=== PATIENT | male | born 1980 | race Caucasian/White ===

== ENCOUNTER 2018-11-08 19:23 | Emergency (ER) | payer MEDICAID ==
[~2018-11-08] VITALS: Ht 175.3 cm; Wt 106.3 kg
[2018-11-08 19:33] VITALS: Ht 175.3 cm; Wt 106.3 kg
[2018-11-08] MEDS ORDERED: KETOROLAC 60 MG INJ IM STA (20:56)
[2018-11-08] MEDS ORDERED: DEXAMETHASONE 10 MG/ML 1 ML INJ IM ONE (21:00)
[2018-11-08] MEDS ORDERED: PRED20TA PO (21:04)
[2018-11-08] MEDS ORDERED: NAPR-985 PO (21:04)
[2018-11-08] MEDS ORDERED: CYCL10TA7 PO (21:04)
[2018-11-08] MEDS ORDERED: HYDR-4011 PO (21:04)
[2018-11-08] MEDS ORDERED: IBUP-1542 PO (21:04)
--- NOTE | 2018-11-08 21:20 | ERD ---
ER Documentation Chief Complaint Chief Complaint BACK PAIN S/P LIFTING HEAVY OBJECT 4 DAYS AGO HPI 37-year-old male with past medical history of sciatica, no history who presents with complaint of lower back pain over the past 4 days. States he was lifting a pretty heavy water canister and felt he pulled his back. Since that time having lower back pain that radiates down to right lower extremity, with right lower extremity stiffness and tingling sensation. Has had difficulty ambulating and recently started using a cane. Has had difficulty sleeping on his back at night. He otherwise denies lower extremity weakness, urinary or bowel incontinence, lower extremity pain or weakness. He otherwise reports good health and is without further complaint. ROS All systems reviewed and are negative except as per history of present illness. Medications Home Meds Active Scripts Ibuprofen* (Motrin*) 600 Mg Tab, 600 MG PO Q6, #30 TAB Prov:DAYA IVY PA-C 11/08/18 Hydrocodone/Acetaminophen ([place] 5-325 Tablet) 1 Each Tablet, 1 TAB PO Q6H PRN for PAIN, #7 TAB Prov:DAYA IVY-C 11/08/18 Naproxen* (Naprosyn*) 500 Mg Tablet, 500 MG PO BID PRN for PAIN AND/OR INFLAMMATION, #30 TAB Prov:DAYA IVY PA-C 11/08/18 Cyclobenzaprine Hcl* (Cyclobenzaprine Hcl*) 10 Mg Tablet, 10 MG PO TID, #15 TAB Prov:DAYA IVY PA-C 11/08/18 Prednisone* (Prednisone*) 20 Mg Tab, 60 MG PO DAILY for 4 Days, TAB Prov:DAYA IVY PA-C 11/08/18 Allergies Allergies: Coded Allergies: No Known Allergy (Unverified , 11/08/18) PMhx/Soc Medical and Surgical Hx: pt denies Medical Hx, pt denies Surgical Hx History of Surgery: No Anesthesia Reaction: No Hx Neurological Disorder: No Hx Respiratory Disorders: No Hx Cardiac Disorders: No Hx Psychiatric Problems: No Hx Miscellaneous Medical Probl: No Hx Alcohol Use: No Hx Substance Use: No Hx Tobacco Use: Yes Smoking Status: Current every day smoker FmHx Family History: No diabetes, No coronary disease, No other Physical Exam Vitals Vital Signs Date Temp Pulse Resp B/P (MAP) Pulse Ox O2 O2 Flow FiO2 Time Delivery Rate 11/08/18 98.4 60 18 135/88 100 19:33 (104) Physical Exam I have reviewed the triage vital signs. Const: Well nourished, well developed, appears stated age Eyes: PERRL, no conjunctival injection HENT: NCAT, Neck supple without meningismus CV: RRR, Warm, well-perfused extremities RESP: CTAB, Unlabored respiratory effort GI: soft, non-tender, non-distended, no masses MSK: No gross deformities appreciated, unable to raise right lower extremity, unable to take more than 4 steps without significant pain and discomfort, right lower extremity 4 out of 5 strength , SI LT throughout bilateral lower extremities, left lower extremity 5 out of 5 strength throughout Back Exam: Skin: No bruising or rash Compartments: Soft Motor: Normal flexion and extension of bilateral hip/knee/ankle/foot Sensation: Intact to light touch throughout Bones: No midline TTP Skin: Warm, dry. No rashes Neuro: grossly non focal Psych: Appropriate mood and affect. Results 24 hrs Current Medications Medications Dose Sig/Ashley Start Time Status Last (Trade) Ordered Route PRN Stop Time Admin Dose Reason Admin Ketorolac 60 mg ONCE STAT 11/08/18 DC 11/08/18 Tromethamine IM 20:56 21:21 (Toradol) 11/08/18 20:58 10 mg ONCE ONCE 11/08/18 DC 11/08/18 Dexamethasone IM 21:00 21:21 (Decadron) 11/08/18 21:01 Procedures/MDM Low suspicion for acute cord compression or cauda equina at this time, given presentation and symptoms, including epidural abscess or hematoma. Patient has no history of malignancy, active or distant history. Patient has no unexplained weight loss. No recent fevers, rigors, malaise, or recent infection. No history of IVDU or skin-popping. Patient does not have any history concerning for saddle anesthesia/perianal sensory loss or complaining of decreased rectal tone. Patient does not have urinary retention or inability to control urine from overflow. Patient has no tenderness overlying spinous process. Patient has no focal weakness on examination. Advised patient to establish care with PMD as he might need additional work-up as if symptoms do not improve. Patient expressing understanding and agrees to establish care. ED course: Toradol, Decadron Patient symptoms improved, not able to take multiple steps in ED with less discomfort Will discharge with appropriate pain medications and NSAIDs, short course of steroids Given exam and history, low suspicion for cord compression, cauda equina, epidural abscess/hematoma. Distally neurovascularly intact. Query likely musculoskeletal component. Discussed pain control,and follow up with PMD. Cautious return precautions discussed w/ full understanding DISPOSITION PLAN: We discussed follow up with the patient's primary care doctor within 24 to 48 hours. Patient counseled regarding my diagnostic impression and care plan. Prior to discharge all questions answered. Pt agrees with treatment plan and understands strict return precautions. Precautionary instructions provided including instructions to return to the ER if not improving or for any worsening or changing symptoms or concerns. Disclaimer: Inadvertent spelling and grammatical errors are likely due to EHR/dictation software use and do not reflect on the overall quality of patient care. Also, please note that the electronic time recorded on this note does not necessarily reflect the actual time of the patient encounter. Departure Diagnosis: Primary Impression: Back pain Condition: Stable Patient Instructions: Back Pain (Acute Or Chronic), Back Pain W/ Sciatica Additional Instructions: Call your primary care doctor TOMORROW for an appointment during the next 2-3 days.See the doctor sooner or return here if your condition worsens before your appointment time. DAYA IVY PA-C Nov 08, 2018 21:20
[2018-11-08 23:00] VITALS: BP 128/81; PULSE 78; RESP 16
== END 2018-11-08 23:02 | disposition home or self-care (01) ==
LOC: FTE 19:23
DX: M54.5 Low back pain (principal); F17.210 Nicotine dependence, cigarettes, uncomplicated
CPT/HCPCS: 96372; J1100; J1885; Z7502